=== PATIENT | male | born 1960 | race Caucasian/White ===

== ENCOUNTER 2017-04-19 13:40 | Emergency (ER) | payer OTHER ==
[2017-04-19] VITALS (8 sets, daily range): BP systolic 133–185; BP diastolic 85–100; PULSE 69–104; RESP 16–21; O2SAT 96–99
[~2017-04-19] VITALS: Ht 167.6 cm; Wt 82.0 kg
[~2017-04-19 13:40] MED LIST: 1-ME1LIQ PO; DESYREL PO; MULTIVITAMIN PO; THIAMINE PO; [UNRECOGNIZED DRUG - OTHER] PO
[2017-04-19] MEDS ORDERED: VITA100064 PO (14:39)
[2017-04-19] MEDS ORDERED: NAPR500T2 PO (14:39)
[2017-04-19] MEDS ORDERED: ATOR20TA15 PO (14:39)
[2017-04-19] MEDS ORDERED: AMLO10TA2 PO (14:39)
[2017-04-19] MEDS ORDERED: TRAM50TA PO ×2 (14:39→21:45)
[2017-04-19] MEDS ORDERED: IPRAAER INH (14:39)
[2017-04-19] MEDS ORDERED: BACL10TA PO (14:39)
[2017-04-19] MEDS ORDERED: ASPI81TA23 PO (14:39)
[2017-04-19] MEDS ORDERED: MULTTAB67 PO (14:39)
[2017-04-19] MEDS ORDERED: SODIUM CHLORIDE 0.9% FLUSH 10 ML FLUSH IVF PRN (16:00)
[2017-04-19 16:44] LABS: AUTOMATED NEUTROPHIL # 5.8 TH/MM3 (1.8-7.7); BASOPHIL # 0.1 TH/MM3 (0-0.2); BASOPHIL % 1.2 % (0.0-2.0); EOSINOPHIL # 0.2 TH/MM3 (0-0.4); EOSINOPHIL % 1.9 % (0.0-4.0); HEMATOCRIT 49.2 % (39.0-51.0); HEMOGLOBIN 17.2 GM/DL (13.0-17.0); LYMPH % 42.1 % (9.0-44.0); LYMPHOCYTE # 5.2 TH/MM3 (1.0-4.8); MEAN CELL VOLUME 92.7 FL (80.0-100.0); MEAN CORPUSCULAR HEMOGLOBIN 32.5 PG (27.0-34.0); MEAN PLATELET VOLUME 7.9 FL (7.0-11.0); MONO % 7.4 % (0.0-8.0); MONOCYTE # 0.9 TH/MM3 (0-0.9); NEUT % 47.4 % (16.0-70.0); PLATELET COUNT 291 TH/MM3 (150-450); RED CELL DISTRIBUTION WIDTH 14.2 % (11.6-17.2); WHITE BLOOD COUNT 12.3 TH/MM3 (4.0-11.0)
[2017-04-19 16:54] LABS: PROTHROMBIN TIME - PATIENT 10.4 SEC (9.8-11.6)
--- NOTE | 2017-04-19 16:55 | PD ---
HPI Chief Complaint: Chest Pain Time Seen by Provider: 15:53 Travel History International Travel<30 days: No Contact w/Intl Traveler<30days: No Traveled to known affect area: No History of Present Illness HPI 48-year-old male patient presents emergency department for evaluation of right lateral chest pain. Patient describes a pain is sharp and stabbing. It is constant at a 5 out of 10. Patient states when he coughs or moves in shoots to a 10 out of 10. The pain started last night at around 3 AM when the patient coughed. Patient states coughing makes the pain went worse when he tries not to cough. The pain does not radiate anywhere. The pain is reproducible with palpation. He denies any recent falls, traumas or injuries to the area. No ecchymosis or erythema noted. She states he becomes short of breath with moderate exertion such as climbing stairs however with just walking around he does not become short of breath. Patient had a surgery on February 08 those exploratory laparoscopic to evaluate for chronic scarring of the lungs. Patient sees a career information specialist at the [facility] in [place]. Patient is currently a smoker although he tried to quit. He states he only smokes a couple cigarettes a day now. Recent medical history includes hypertension which he takes amlodipine daily. PFSH Past Medical History Hx Anticoagulant Therapy: Yes Arthritis: Yes (BACK) Blood Disorders: No Depression: Yes Cancer: No Cardiovascular Problems: Yes Diminished Hearing: No Endocrine: No Genitourinary: No Hypertension: Yes Immune Disorder: No Musculoskeletal: Yes Neurologic: No Psychiatric: Yes Reproductive: No Respiratory: Yes (CHRONIC SCARRING OF LUNGS) Immunizations Current: Yes Tetanus Vaccination: Unknown Influenza Vaccination: Yes Past Surgical History Abdominal Surgery: No Cardiac Surgery: No Ear Surgery: No Endocrine Surgery: No Eye Surgery: No Genitourinary Surgery: No Gynecologic Surgery: No Oral Surgery: No Thoracic Surgery: Yes Other Surgery: Yes Social History Alcohol Use: Yes (Daily - 6Pack & 1pt whiskey as well) Tobacco Use: Yes (1PPD) Substance Use: No (MARIJAUNA ON OCCASION-PT DENIES) Allergies-Medications (Allergen,Severity, Reaction): Coded Allergies: No Known Allergies (Verified Adverse Reaction, Unknown, 04/19/17) Uncoded Allergies: NKA (Allergy, Unknown, 12/24/02) Reported Meds & Prescriptions Reported Meds & Active Scripts Active Reported Multiple Vitamin 1 Tab 1 Tab PO DAILY Vitamin D3 (Cholecalciferol) 1,000 Unit Tab 1,000 Units PO DAILY Atorvastatin (Atorvastatin Calcium) 20 Mg Tab 20 Mg PO HS Aspirin EC (Aspirin) 81 Mg Tabdr 81 Mg PO DAILY Amlodipine (Amlodipine Besylate) 10 Mg Tab 10 Mg PO DAILY Combivent Respimat Inh (Ipratropium-Albuterol Inh) 20-100 Prison/Act Aero 1 Puff INH QID Naproxen 500 Mg Tab 500 Mg PO BID Tramadol (Tramadol HCl) 50 Mg Tab 50 Mg PO Q6H PRN Baclofen 10 Mg Tab 10 Mg PO Q8HR [Vitiman B 1] 100 Mg PO DAILY [Desyrel] 200 Mg PO HS [Multivitamin] 1 Tab PO DAILY [Foliate] 1 Mg PO DAILY Review of Systems Except as stated in HPI: all other systems reviewed are Neg Physical Exam Narrative GENERAL: Well-nourished well-developed 56-year-old white male patient in mild respiratory discomfort. SKIN: Focused skin assessment warm/dry. HEAD: Atraumatic. Normocephalic. EYES: Pupils equal and round. No scleral icterus. No injection or drainage. ENT: No nasal bleeding or discharge. Mucous membranes pink and moist. NECK: Trachea midline. No JVD. CARDIOVASCULAR: Regular rate and rhythm. No murmur appreciated. RESPIRATORY: No accessory muscle use. Coarse sounds and rhonchi throughout. Breath sounds equal bilaterally. GASTROINTESTINAL: Abdomen soft, non-tender, nondistended. Hepatic and splenic margins not palpable. MUSCULOSKELETAL: No obvious deformities. No clubbing. No cyanosis. No edema. NEUROLOGICAL: Awake and alert. No obvious cranial nerve deficits. Motor grossly within normal limits. Normal speech. PSYCHIATRIC: Appropriate mood and affect; insight and judgment normal. Data Data Last Documented VS Vital Signs Date Time Temp Pulse Resp B/P (MAP) Pulse Ox O2 Delivery O2 Flow Rate FiO2 04/19/17 20:10 69 16 185/92 (123) 98 Nasal Cannula 2.00 Orders Orders Electrocardiogram (04/19/17 15:51) Complete Blood Count With Diff (04/19/17 15:51) Comprehensive Metabolic Panel (04/19/17 15:51) Magnesium (Mg) (04/19/17 15:51) Prothrombin Time / Inr (Pt) (04/19/17 15:51) Act Partial Throm Time (Ptt) (04/19/17 15:51) Troponin I (04/19/17 15:51) Chest, Single Ap (04/19/17 15:51) Ecg Monitoring (04/19/17 15:51) Bilateral Bp Monitoring (04/19/17 15:51) Iv Access Insert/Monitor (04/19/17 15:51) Oximetry (04/19/17 15:51) Oxygen Administration (04/19/17 15:51) Sodium Chloride 0.9% Flush (Ns Flush) (04/19/17 16:00) Amlodipine (Norvasc) (04/19/17 20:30) Levofloxacin 750 Mg Premix Inj (Levaquin (04/19/17 21:00) Labs Laboratory Tests Test 04/19/17 16:00 04/19/17 19:25 White Blood Count 12.3 TH/MM3 Red Blood Count 5.30 MIL/MM3 Hemoglobin 17.2 GM/DL Hematocrit 49.2 % Mean Corpuscular Volume 92.7 FL Mean Corpuscular Hemoglobin 32.5 PG Mean Corpuscular Hemoglobin Concent 35.0 % Red Cell Distribution Width 14.2 % Platelet Count 291 TH/MM3 Mean Platelet Volume 7.9 FL Neutrophils (%) (Auto) 47.4 % Lymphocytes (%) (Auto) 42.1 % Monocytes (%) (Auto) 7.4 % Eosinophils (%) (Auto) 1.9 % Basophils (%) (Auto) 1.2 % Neutrophils # (Auto) 5.8 TH/MM3 Lymphocytes # (Auto) 5.2 TH/MM3 Monocytes # (Auto) 0.9 TH/MM3 Eosinophils # (Auto) 0.2 TH/MM3 Basophils # (Auto) 0.1 TH/MM3 CBC Comment AUTO DIFF Differential Total Cells Counted 100 Neutrophils % (Manual) 47 % Band Neutrophils % 10 % Lymphocytes % 28 % Monocytes % 12 % Eosinophils % 3 % Neutrophils # (Manual) 7.0 TH/MM3 Differential Comment FINAL DIFF MANUAL Atypical Lymphocytes % Platelet Estimate NORMAL Platelet Morphology Comment NORMAL Prothrombin Time 10.4 SEC Prothromb Time International Ratio 1.0 RATIO Activated Partial Thromboplast Time 25.3 SEC Blood Urea Nitrogen 11 MG/DL Creatinine 0.87 MG/DL Random Glucose 89 MG/DL Total Protein 8.2 GM/DL Albumin 3.4 GM/DL Calcium Level 8.6 MG/DL Magnesium Level 1.9 MG/DL Alkaline Phosphatase 111 U/L Aspartate Amino Transf (AST/SGOT) 58 U/L Alanine Aminotransferase (ALT/SGPT) 101 U/L Total Bilirubin 1.0 MG/DL Sodium Level 134 MEQ/L Potassium Level 3.8 MEQ/L Chloride Level 99 MEQ/L Carbon Dioxide Level 25.0 MEQ/L Anion Gap 10 MEQ/L Estimat Glomerular Filtration Rate 90 ML/MIN Troponin I LESS THAN 0.02 NG/ML MDM Medical Decision Making Medical Screen Exam Complete: Yes Emergency Medical Condition: Yes Differential Diagnosis Differential diagnoses include but not limited to pneumonia, coronary event, electrolyte abnormality, metabolic derangement, arrhythmia, rib fracture Narrative Course Patient was a monitor, IV obtained. Blood work sent to the lab. CBC, CMP, magnesium, PT/INR, troponin ordered and pending. Chest x-ray ordered and pending. EKG ordered and interpreted. CBC shows leukocytosis at 12.3. CMP sodium 134, AST 58, ALT 101 PT/INR shows no acute abnormality. Troponin less than 0.02 EKG shows sinus rhythm with heart rate 67. Chest x-ray shows perihilar edema versus pneumonia. Based on patient's symptoms, clinical presentation, lab results, radiological results, vital sign review and physical exam it is not necessary to admit the patient to the hospital or keep the patient in the emergency department for further evaluation. The chest pain is reproducible to palpation. Chest x-ray shows pneumonia. Patient is afebrile with no tachycardia. Patient will be given IV Levaquin at our facility and discharged home with prescription for Levaquin and instructions to return the emergency department with any worsening condition but otherwise follow up with primary care. Diagnosis Primary Impression: Pneumonia Qualified Codes: J18.9 - Pneumonia, unspecified organism Referrals: Primary Care Physician Chief Technologist Patient Instructions: Community Acquired Pneumonia (DC), General Instructions Additional Instructions: Please return to emergency department if your symptoms return or worsen. Follow up with your primary care provider. Take medications as prescribed. Med/Other Pt SpecificInfo: Prescription(s) given Scripts Levofloxacin (Levofloxacin) 750 Mg Tablet 750 MG PO DAILY for Infection for 5 Days, #5 TAB 0 Refills Prov: IsmaMemestanley MAYS 04/19/17 Disposition: 01 DISCHARGE HOME Condition: Stable Meme Ashby Apr 19, 2017 16:55
--- NOTE | 2017-04-19 17:00 | RADRPT ---
EXAM DATE/TIME: 04/19/2017 16:06 [facility] COMPARISON: CHEST SINGLE AP, October 29, 2009, 15:18. INDICATIONS : Left sided chest pain starting today MEDICAL HISTORY : Chronic lung scarring SURGICAL HISTORY : None. ENCOUNTER: Initial ACUITY: 1 day PAIN SCORE: 8/10 LOCATION: Left chest FINDINGS: The cardiac silhouette is enlarged in transverse diameter. There is perihilar edema versus pneumonia. No lobar consolidation is seen. No pleural effusions are identified. CONCLUSION: 1. Perihilar edema versus pneumonia. Gio Null MD on April 19, 2017 at 16:57 Board Certified Radiologist. This report was verified electronically.
[2017-04-19 18:07] LABS: BANDS 10 % (0-6); MONOCYTES 12 % (0-8); POLYS (SEG NEUTROPHILS) 47 % (16-70)
[2017-04-19 18:08] LABS: LYMPHOCYTES 28 % (9-44)
[2017-04-19 18:32] LABS: ALT (GPT) 101 U/L (12-78)
[2017-04-19 18:36] LABS: ALKALINE PHOSPHATASE 111 U/L (45-117); TOTAL PROTEIN 8.2 GM/DL (6.4-8.2); TROPONIN I LESS THAN 0.02 NG/ML (0.02-0.05)
[2017-04-19 20:21] LABS: ALBUMIN 3.4 GM/DL (3.4-5.0); AST (GOT) 58 U/L (15-37); BLOOD UREA NITROGEN 11 MG/DL (7-18); CALCIUM 8.6 MG/DL (8.5-10.1); CHLORIDE 99 MEQ/L (98-107); CREATININE 0.87 MG/DL (0.60-1.30); GLOMERULAR FILTRATION RATE 90 ML/MIN (>89); GLUCOSE,RANDOM 89 MG/DL (74-106); MAGNESIUM 1.9 MG/DL (1.5-2.5); SODIUM (NA) 134 MEQ/L (136-145)
[2017-04-19] MEDS ORDERED: LEVOFLOXACIN 750 MG PREMIX INJ 150 ML IV ONE (21:00)
[2017-04-19] MEDS ORDERED: LEVO750T3 PO (21:02)
--- NOTE | 2017-04-21 23:50 | EKG ---
Date Performed: 04/19/2017 Time Performed: 14:53:03 PTAGE: 56 years EKG: Sinus rhythm MINIMAL ST DEPRESSION BORDERLINE ECG PREVIOUS TRACING : 10/29/2009 14.59 DOCTOR: Janel Nielsen Interpretating Date/Time 04/21/2017 23:50:10
== END 2017-04-19 22:52 | disposition home or self-care (01) ==
LOC: NEPE 13:40
DX: J18.9 Pneumonia, unspecified organism (principal); R94.31 Abnormal electrocardiogram [ECG] [EKG]; R06.02 Shortness of breath; I10 Essential (primary) hypertension; Z79.01 Long term (current) use of anticoagulants
CPT/HCPCS: 71045; 80053; 83735; 84484; 85007; 85027; 85610; 85730; 93005; 96374; 99285; J1956